=== PATIENT | female | born 1990 | race Two or more races ===

== ENCOUNTER 2016-11-05 19:53 | Emergency (ER) | payer OTHER ==
[~2016-11-05] VITALS: Ht 165.1 cm; Wt 67.6 kg
[~2016-11-05 19:53] MED LIST: PREN1TAB58 PO
[2016-11-05 19:55] VITALS: BP 116/68
[2016-11-05] MEDS ORDERED: AZIT250T PO (20:26)
[2016-11-05] MEDS ORDERED: PROM118S2 PO (20:26)
--- NOTE | 2016-11-05 20:26 | PHYS DOC ---
Past Medical History Past Medical History: Cancer Additional Past Medical Histor: LEUKEMIA A CHILD Past Surgical History: Other Additional Past Surgical Histo: BONE MARROW TRANSPLANT Alcohol Use: Occasionally Drug Use: None Adult General Chief Complaint Chief Complaint: COUGH HPI HPI Patient is a 25 year old female, who is 12 weeks gestation, reports the emergency room today for complaints of cough and congestion for the past 2 weeks. Patient has history of cardiopulmonary disease. She states that she is a nonsmoker. She denies hospitalization, antibiotic use or foreign travel within the past 90 days. Patient states that she's tried numerous [id number] medications at home remedies to help suppress her cough is been unsuccessful. Patient denies any concerns for at this time. She denies any pelvic pain, vaginal bleeding or painful urination. Review of Systems Review of Systems Constitutional: Denies fever or chills [] Eyes: Denies change in visual acuity, redness, or eye pain [] HENT: Denies nasal congestion or sore throat [] Respiratory: Denies cough or shortness of breath [] Cardiovascular: No additional information not addressed in HPI [] GI: Denies abdominal pain, nausea, vomiting, bloody stools or diarrhea [] : Denies dysuria or hematuria [] Musculoskeletal: Denies back pain or joint pain [] Integument: Denies rash or skin lesions [] Neurologic: Denies headache, focal weakness or sensory changes [] Endocrine: Denies polyuria or polydipsia [] Allergies Allergies Allergies Coded Allergies Type Severity Reaction Last Updated Verified No Known Drug Allergies 08/27/14 No Physical Exam Physical Exam Constitutional: Well developed, well nourished, no acute distress, non-toxic appearance. [] HENT: Normocephalic, atraumatic, bilateral external ears normal, oropharynx moist, no oral exudates, copious amounts of clear nasal discharge with boggy mucosa in the naris. Eyes: PERRLA, EOMI, conjunctiva normal, no discharge. [] Neck: Normal range of motion, no tenderness, supple, no stridor. [] Cardiovascular:Heart rate regular rhythm, no murmur [] Lungs & Thorax: There is no respiratory distress respiratory fatigue. Patient does exhibit a harsh, nonproductive bronchitic cough. Her lung sounds are clear to auscultation. Oxygen saturation is 98% on room air. Abdomen: Bowel sounds normal, soft, no tenderness, no masses, no pulsatile masses. [] Skin: Warm, dry, no erythema, no rash. [] Back: No tenderness, no CVA tenderness. [] Extremities: No tenderness, no cyanosis, no clubbing, ROM intact, no edema. [] Neurologic: Alert and oriented X 3, normal motor function, normal sensory function, no focal deficits noted. [] Psychologic: Affect normal, judgement normal, mood normal. [] Current Patient Data Vital Signs Vital Signs Date Time Temp Pulse Resp B/P Pulse Ox O2 Delivery O2 Flow Rate FiO2 11/05/16 19:55 98.3 114 20 97 Room Air 98.3 EKG EKG [] Radiology/Procedures Radiology/Procedures [] Course & Med Decision Making Course & Med Decision Making Pertinent Labs and Imaging studies reviewed. (See chart for details) [] Dragon Disclaimer Dragon Disclaimer This electronic medical record was generated, in whole or in part, using a voice recognition dictation system. Departure Departure Impression: Primary Impression: Bronchitis Disposition: HOME, SELF-CARE Condition: GOOD Referrals: NO PCP (PCP) Patient Instructions: Acute Bronchitis, [id number] Additional Instructions: 1. Take medications as prescribed. 2. Review the discharge instructions provided for self-care reasons to return to the emergency department. 3. Contact [facility] [place] to schedule follow-up appointment for reevaluation. Scripts Promethazine Hcl/Codeine (Promethazine-Codeine Syrup)118 Ml Syrup5 Ml PO every 6 hours COUGH #120 ML Prov:THOMAS ZUNIGA 11/05/16 Azithromycin (Zithromax)250 Mg Tablet1 Pkg PO UD #6 TAB Prov:THOMAS ZUNIGA 11/05/16 THOMAS ZUNIGA Nov 05, 2016 20:26
== END 2016-11-05 20:29 | disposition home or self-care (01) ==
LOC: ER 19:53
DX: O99.511 Diseases of the respiratory system complicating pregnancy, first trimester (principal); J40 Bronchitis, not specified as acute or chronic; Z3A.12 12 weeks gestation of pregnancy; Z86.79 Personal history of other diseases of the circulatory system
CPT/HCPCS: 99283